=== PATIENT | female | born 1960 | race Caucasian/White ===

== ENCOUNTER 2025-08-02 13:04 | Emergency (ER) | payer MEDICARE ==
[~2025-08-02] VITALS: Ht 180.3 cm; Wt 110.0 kg
[2025-08-02 17:11] VITALS: BP 138/84; TEMP 98.4; O2SAT 97
[2025-08-02] MEDS ORDERED: BUPR150T12 PO (17:55)
[2025-08-02] MEDS ORDERED: C 50TAB PO (17:55)
[2025-08-02] MEDS ORDERED: GABA-1490 PO (17:55)
[2025-08-02] MEDS ORDERED: ALPR0.25 PO (17:55)
[2025-08-02] MEDS ORDERED: OXYC7.5T3 PO (17:55)
[2025-08-02] MEDS ORDERED: TRAZ-252 PO (17:55)
[2025-08-02] MEDS ORDERED: BACL10TA2 PO (17:55)
[2025-08-02] MEDS ORDERED: SENN-186 PO (17:55)
[2025-08-02] MEDS ORDERED: LEXA1TAB2 PO (17:55)
== END 2025-08-02 18:01 | disposition home or self-care (01) ==
LOC: M ED 13:04
DX: Z76.0 Encounter for issue of repeat prescription (principal); Z88.0 Allergy status to penicillin; Z88.8 Allergy status to other drugs, medicaments and biological substances; Z91.040 Latex allergy status; Z79.2 Long term (current) use of antibiotics; Z79.899 Other long term (current) drug therapy

== ENCOUNTER 2025-09-25 22:26 | Inpatient (IN) | payer MEDICARE ==
[~2025-09-25] VITALS: Ht 180.3 cm; Wt 102.0 kg
[~2025-09-25 22:26] MED LIST: ALPR0.25 PO; BACL10TA2 PO; BUPR150T12 PO; C 50TAB PO; GABA-1490 PO; LEXA1TAB2 PO; OXYC7.5T3 PO; SENN-186 PO; TRAZ-252 PO
[2025-09-26] MEDS: NS (Normal Saline) 0.9% 1,000 ML IV ONE (00:34)
[2025-09-26 00:56] LABS: BASO # 0.0 10^3/uL (0.0-0.2); BASO % 0.4 % (0.0-1.0); EOS # 0.1 10^3/uL (0.0-0.5); EOS % 1.6 % (0.0-3.0); LYMPH # 2.0 10^3/uL (1.5-5.0); LYMPH % 28.7 % (24.0-44.0); MONO # 0.8 10^3/uL (0.0-0.8); MONO % 10.7 % (2.0-8.0); NEUTROPHILS # 4.1 10^3/uL (1.5-8.5); NEUTROPHILS % 58.5 % (36.0-66.0); PLATELET COUNT, AUTOMATED 275 10^3/uL (150-450)
[2025-09-26 01:12] LABS: CK-MB VALUE MASS < 1.0 NG/ML (<3.6); ETHYL ALCOHOL (ETHANOL) < 0.003 % (0.000-0.010)
[2025-09-26 01:14] LABS: ALT/SGPT 16 U/L (7.0-40); AST/SGOT 18 U/L (<34); CALCIUM LEVEL 8.9 MG/DL (8.3-10.6); CARBON DIOXIDE LEVEL 28 MMOL/L (20-31); CHLORIDE LEVEL 109 MMOL/L (98-107); CPK CREATINE PHOSPHOKINASE 24 U/L (34-145); CREATININE FOR GFR 0.49 MG/DL (0.55-1.30); GLOMERULAR FILTRATION RATE > 90.0 (>45); POTASSIUM SERUM 4.3 MMOL/L (3.5-5.1); SALICYLATE LEVEL < 3.0 MG/DL (<30); SODIUM LEVEL 143 MMOL/L (136-145)
[2025-09-26 01:19] LABS: OSMOLALITY SERUM 302 MOSM/KG (280-301)
[2025-09-26 02:38] LABS: FREE T4 3.43 NG/DL (0.89-1.76)
[2025-09-26 02:53] LABS: CK-MB VALUE MASS < 1.0 NG/ML (<3.6)
[2025-09-26 02:54] LABS: CPK CREATINE PHOSPHOKINASE 20 U/L (34-145)
[2025-09-26 03:15] LABS: KETONE, URINE AUTO RFX NEGATIVE (NEGATIVE); LEUKOCYTE ESTERASE UR AUTO RFX 1+ (NEGATIVE); MUCUS, URINE RFX SMALL (NEGATIVE); NITRITE, URINE AUTO RFX NEGATIVE (NEGATIVE); RBC, URINE AUTO RFX 4 /HPF (0-3); SQUAM EPITHELIAL CELL UR AURFX 3 /HPF (0-6); WBC, URINE AUTO RFX 6 /HPF (0-3)
[2025-09-26 05:19] LABS: AMPHETAMINES LEVEL URINE NEGATIVE (NEGATIVE); BARBITURATES URINE NEGATIVE (NEGATIVE); BENZODIAZEPINES URINE NEGATIVE (NEGATIVE); CANNABINOIDS URINE NEGATIVE (NEGATIVE); COCAINE METABOLITE URINE NEGATIVE (NEGATIVE); METHADONE URINE NEGATIVE (NEGATIVE); OPIATES URINE NEGATIVE (NEGATIVE); PHENCYCLIDINE URINE NEGATIVE (NEGATIVE)
[2025-09-26] MEDS: MAALOX 30 ML SUSP *UDC PO ONE (06:01)
[2025-09-26] MEDS ORDERED: ISOVUE-370 76% 100 ML VIAL As Ordered ONE (07:58)
[2025-09-26] MEDS ORDERED: ACETAMINOPHEN 325 MG TAB PO PRN (09:20)
[2025-09-26] MEDS ORDERED: LEXA1TAB2 PO (09:57)
[2025-09-26] MEDS ORDERED: TRAZ-252 PO (09:57)
[2025-09-26] MEDS ORDERED: BACL1TAB8 PO (09:57)
[2025-09-26] MEDS ORDERED: SENN-186 PO (09:57)
[2025-09-26] MEDS ORDERED: VITA500C24 PO (09:57)
[2025-09-26] MEDS ORDERED: BUPR15TASR PO (09:57)
[2025-09-26] MEDS ORDERED: GABA-1490 PO (09:57)
[2025-09-26] MEDS ORDERED: ALPR0.25 PO (09:57)
[2025-09-26] MEDS ORDERED: HOME MED LIST COMPLETE! XX SCH (10:00)
[2025-09-26 10:04] LABS: THYROGLOBULIN ANTIBODY 28.0 U/ML (<60.0)
[2025-09-26] MEDS: ONDANSETRON 4MG TAB PO PRN (10:08)
[2025-09-26 10:31] VITALS: BP 127/61; TEMP 98.3; O2SAT 94
[2025-09-26] MEDS: GABAPENTIN 300 MG CAP PO SCH (15:19)
[2025-09-26] MEDS: ACETAMINOPHEN 500 MG TAB PO ONE (15:21)
[2025-09-26] MEDS: GASTROGRAFIN SOLUTION 30ML PO SCH (18:46)
[2025-09-26 19:56] VITALS: BP 130/59; TEMP 99.1; O2SAT 91
[2025-09-26] MEDS: MAALOX 30 ML SUSP *UDC PO PRN (21:46)
[2025-09-26] MEDS: traZODone 50 MG TAB PO SCH (21:59)
[2025-09-26] MEDS: SENNA 8.6 MG TAB PO SCH (21:59)
[2025-09-26] MEDS: DOCUSATE SODIUM 100 MG CAPSULE PO SCH (21:59)
[2025-09-26] MEDS: buPROPion **SR** 150 MG TABLET PO SCH (22:00)
[2025-09-26] MEDS: BACLOFEN 10 MG TAB PO SCH (22:00)
[2025-09-26] MEDS: ASCORBIC ACID 500 MG TAB PO SCH (22:02)
[2025-09-27 05:08] VITALS: BP 132/63; TEMP 98.2; O2SAT 95
[2025-09-27] MEDS: SUCRALFATE SUSP 1GM/10ML UD PO ONE (06:01)
[2025-09-27 07:30] LABS: PLATELET COUNT, AUTOMATED 258 10^3/uL (150-450)
[2025-09-27 07:55] LABS: ALT/SGPT 18 U/L (7.0-40); AST/SGOT 20 U/L (<34); CALCIUM LEVEL 8.8 MG/DL (8.3-10.6); CARBON DIOXIDE LEVEL 30 MMOL/L (20-31); CHLORIDE LEVEL 106 MMOL/L (98-107); CREATININE FOR GFR 0.41 MG/DL (0.55-1.30); GLOMERULAR FILTRATION RATE > 90.0 (>45); MAGNESIUM LEVEL 1.9 MG/DL (1.8-2.4); POTASSIUM SERUM 4.1 MMOL/L (3.5-5.1); SODIUM LEVEL 143 MMOL/L (136-145)
[2025-09-27] MEDS: ENOXAPARIN 40 MG/0.4 ML SYRINGE (J1650 PER 10MG) SC SCH (09:13)
[2025-09-27] MEDS: ESCITALOPRAM OXALATE 10 MG TABLET PO SCH (09:14)
[2025-09-27] MEDS: DICLOFENAC EPOLAMINE 1.3% PATCH TOP SCH (11:00)
[2025-09-27] MEDS: OMEPRAZOLE 20MG CAP PO SCH (11:00)
[2025-09-27 12:00] VITALS: BP 135/60; TEMP 98.3; O2SAT 91
[2025-09-27 13:17] LABS: THYROID PEROXIDASE ANTIBODY 220.0 U/ML (<60.0)
[2025-09-27 13:43] LABS: THYROGLOBULIN ANTIBODY 20.0 U/ML (<60.0)
[2025-09-27] MEDS: ALPRAZolam 0.25 MG TAB PO ONE (18:38)
[2025-09-27 19:56] VITALS: BP 130/60; TEMP 98.7; O2SAT 91
[2025-09-28 03:26] VITALS: BP 120/54; TEMP 98; O2SAT 92
[2025-09-28 06:51] LABS: PLATELET COUNT, AUTOMATED 244 10^3/uL (150-450)
[2025-09-28 07:11] LABS: ALT/SGPT 14 U/L (7.0-40); AST/SGOT 15 U/L (<34); CALCIUM LEVEL 8.8 MG/DL (8.3-10.6); CARBON DIOXIDE LEVEL 30 MMOL/L (20-31); CHLORIDE LEVEL 107 MMOL/L (98-107); CREATININE FOR GFR 0.43 MG/DL (0.55-1.30); GLOMERULAR FILTRATION RATE > 90.0 (>45); MAGNESIUM LEVEL 1.7 MG/DL (1.8-2.4); POTASSIUM SERUM 3.9 MMOL/L (3.5-5.1); SODIUM LEVEL 142 MMOL/L (136-145)
[2025-09-28] MEDS: HEPARIN SOD 5000 UNITS/ML 1 ML VIAL/SYRINGE SQ SCH (09:09)
[2025-09-28] MEDS: ALPRAZolam 0.25 MG TAB PO PRN (09:17)
[2025-09-28 12:00] VITALS: BP 128/58; TEMP 98.2; O2SAT 97
[2025-09-28] MEDS ORDERED: ATEN50TA2 PO (14:24)
[2025-09-28] MEDS ORDERED: MOM30SS2 PO (14:24)
[2025-09-28] MEDS ORDERED: METH-1386 PO (14:24)
[2025-09-28] MEDS ORDERED: LIDO1PAD TOP (14:24)
[2025-09-28] MEDS ORDERED: DICL1PAT6 TOP (14:24)
[2025-09-28] MEDS ORDERED: OMEP-173 PO (14:24)
[2025-09-28 20:40] VITALS: BP 125/60; TEMP 98.3; O2SAT 94
[2025-09-29 04:08] VITALS: BP 105/56; TEMP 97.9; O2SAT 93
[2025-09-29 06:31] LABS: PLATELET COUNT, AUTOMATED 238 10^3/uL (150-450)
[2025-09-29 07:05] LABS: ALT/SGPT 14 U/L (7.0-40); AST/SGOT 15 U/L (<34); CALCIUM LEVEL 8.5 MG/DL (8.3-10.6); CARBON DIOXIDE LEVEL 30 MMOL/L (20-31); CHLORIDE LEVEL 107 MMOL/L (98-107); CREATININE FOR GFR 0.44 MG/DL (0.55-1.30); GLOMERULAR FILTRATION RATE > 90.0 (>45); MAGNESIUM LEVEL 1.8 MG/DL (1.8-2.4); POTASSIUM SERUM 4.2 MMOL/L (3.5-5.1); SODIUM LEVEL 144 MMOL/L (136-145)
[2025-09-29 10:04] VITALS: BP 128/59
[2025-09-29] MEDS: MOM 30 ML SUSPENSION UDC PO PRN (10:12)
[2025-09-29 12:17] VITALS: BP 114/58; TEMP 98.6; O2SAT 93
[2025-09-29 13:51] LABS: THRYOGLOBULIN ANTIBODIES (ATA) < 1 IU/mL (< or = 1); THYROGLOBULIN QUANTITATIVE 79.0 ng/mL (2.8-40.9)
[2025-09-29] MEDS ORDERED: DICL100G10 TOP (15:18)
[2025-09-30 08:42] LABS: THYROID BINDING GLOBULIN 16.9 mcg/mL (13.5-30.9)
[2025-10-02 17:47] LABS: THYROID STIMULATING IMMUNOGLOB 159 % baseline (<140)
== END 2025-09-29 17:05 | disposition home or self-care (01) | DRG 644 ==
LOC: M ED 22:26 → EDBD 22:26 → M ED INP 09-26 09:19 → M MSPAV 09-26 10:23
PROVIDERS: ADMIT Student in an Organized Health Care Education/Training Program; ATTEND Student in an Organized Health Care Education/Training Program
DX: E05.00 Thyrotoxicosis with diffuse goiter without thyrotoxic crisis or storm (principal); R47.01 Aphasia; G45.9 Transient cerebral ischemic attack, unspecified; M35.00 Sjogren syndrome, unspecified; M06.9 Rheumatoid arthritis, unspecified; M81.0 Age-related osteoporosis without current pathological fracture; M50.30 Other cervical disc degeneration, unspecified cervical region; M25.552 Pain in left hip; G62.9 Polyneuropathy, unspecified; F32.A Depression, unspecified; F41.9 Anxiety disorder, unspecified; G89.29 Other chronic pain; K46.9 Unspecified abdominal hernia without obstruction or gangrene; F17.290 Nicotine dependence, other tobacco product, uncomplicated; R29.6 Repeated falls; H54.7 Unspecified visual loss; R00.0 Tachycardia, unspecified; G47.00 Insomnia, unspecified; K59.04 Chronic idiopathic constipation; Z96.643 Presence of artificial hip joint, bilateral; Z90.49 Acquired absence of other specified parts of digestive tract